=== PATIENT | male | born 1990 | race Caucasian/White ===

== ENCOUNTER 2017-03-08 08:56 | Emergency (ER) | payer OTHER ==
[~2017-03-08] VITALS: Ht 182.9 cm; Wt 97.3 kg
[2017-03-08] MEDS ORDERED: ACETAMINOPHEN 325 MG TAB PO ONE (09:30)
[2017-03-08] MEDS ORDERED: NS 1,000 ML IV ONE (10:30)
[2017-03-08] MEDS ORDERED: KETOROLAC 30 MG/ML VIAL (J1885) IV ONE (10:30)
[2017-03-08] MEDS ORDERED: ONDANSETRON 4MG/2ML VIAL (J2405) IV ONE (10:30)
[2017-03-08 10:48] LABS: ADD MANUAL DIFFER YES; MEAN CORPUSCULAR HEMOGLOBIN 30.4 pg (27.0-33.0); MEAN CORPUSCULAR HGB CONC 34.9 g/dl (32.0-36.5); MEAN CORPUSCULAR VOLUME 87.2 fl (80.0-96.0); PLATELET COUNT, AUTOMATED 215 k/mm3 (150-450); RED CELL DISTRIBUTION WIDTH 13.1 % (11.5-14.5); WHITE BLOOD COUNT 17.7 K/mm3 (4.0-10.0)
[2017-03-08 10:49] LABS: ALBUMIN 4.3 GM/DL (3.2-5.2); ALKALINE PHOSPHATASE 103 U/L (45-117); ALT/SGPT 24 U/L (12-78); ANION GAP 11 MEQ/L (8-16); AST/SGOT 19 U/L (15-37); BILIRUBIN,DIRECT 0.2 MG/DL (0.0-0.2); BILIRUBIN,TOTAL 0.9 MG/DL (0.2-1.0); BLOOD UREA NITROGEN 10 MG/DL (7-18); CALCIUM LEVEL 9.2 MG/DL (8.5-10.1); CARBON DIOXIDE LEVEL 25 MEQ/L (21-32); CHLORIDE LEVEL 102 MEQ/L (98-107); CREATININE FOR GFR 1.35 MG/DL (0.70-1.30); GLOMERULAR FILTRATION RATE > 60.0 (>60); GLUCOSE, FASTING 111 MG/DL (70-105); POTASSIUM SERUM 3.9 MEQ/L (3.5-5.1); SODIUM LEVEL 138 MEQ/L (136-145); TOTAL PROTEIN 7.6 GM/DL (6.4-8.2)
[2017-03-08 11:17] LABS: BANDS 6 % (< 11)
[2017-03-08 11:18] LABS: ANISOCYTOSIS 1+
[2017-03-08] MEDS ORDERED: ISOVUE-370 76% 100ML VIAL (Q9967) As Ordered ONE (11:23)
--- NOTE | 2017-03-08 11:50 | REP ---
Clinical: Right lower quadrant pain. Technique: Axial contrast enhanced images from the lung bases to the pubic symphysis using 100 ml Isovue 370 intravenous contrast material with coronal and sagittal re-formations. Findings: Liver, spleen, pancreas, gallbladder, bilateral adrenal glands and kidneys are normal. The enteric system is without obstruction or obvious acute inflammatory process. Right lower quadrant demonstrates normal cecum and terminal ileum. Distal portion of the appendix measures up to 7 mm demonstrates normal wall thickness and no periappendiceal stranding to suggest acute appendicitis. However close clinical observation may be warranted. Pelvis demonstrates normal bladder and age appropriate prostate/seminal vesicles. No pelvic fluid or ascites. No adenopathy. No free air. Vasculature is normal. Surrounding musculoskeletal structures are intact. Lung bases are clear. Impression: 1. A mid to distal portion of the appendix is mildly dilated to 7.5 mm, but without periappendiceal stranding and normal wall thickness. No secondary findings to suggest acute appendicitis are appreciated. Close clinical observation may be warranted. 2. No acute abdominopelvic pathology otherwise appreciated. Signed by Cleve Dobbins MD 03/08/2017 11:41 A
[2017-03-08] MEDS ORDERED: IBUP-1022 PO (12:56)
[2017-03-08] MEDS ORDERED: TYLE325T5 PO (12:56)
[2017-03-08 12:58] VITALS: BP 131/64
== END 2017-03-08 13:04 | disposition home or self-care (01) ==
LOC: M ED 08:56
DX: R10.31 Right lower quadrant pain (principal); F17.200 Nicotine dependence, unspecified, uncomplicated
CPT/HCPCS: 74177; 80048; 80076; 81001; 83690; 85025; 87880; 96374; 96375; 99284; J1885; J2405; Q9967

== ENCOUNTER 2017-03-09 10:51 | Emergency (ER) | payer OTHER ==
[~2017-03-09] VITALS: Ht 195.6 cm; Wt 98.7 kg
[~2017-03-09 10:51] MED LIST: IBUP-1022 PO; TYLE325T5 PO
[2017-03-09 12:00] LABS: BASO # 0.4 K/mm3 (0.0-0.2); BASO % 2.4 % (0.0-1.0); EOS % 0.2 % (0.0-3.0); LARGE UNSTAINED CELL # 0.2 K/mm3 (0.0-0.4); LARGE UNSTAINED CELL % 1.3 % (0.0-4.0); LYMPH # 0.6 K/mm3 (1.5-6.5); LYMPH % 3.8 % (24.0-44.0); MEAN CORPUSCULAR HEMOGLOBIN 30.8 pg (27.0-33.0); MEAN CORPUSCULAR HGB CONC 34.8 g/dl (32.0-36.5); MEAN CORPUSCULAR VOLUME 88.5 fl (80.0-96.0); MONO # 1.2 K/mm3 (0.0-0.8); MONO % 7.4 % (0.0-5.0); NEUTROPHILS # 14.1 K/mm3 (1.8-7.7); NEUTROPHILS % 84.9 % (36.0-66.0); PLATELET COUNT, AUTOMATED 185 k/mm3 (150-450); RED CELL DISTRIBUTION WIDTH 13.3 % (11.5-14.5); WHITE BLOOD COUNT 16.6 K/mm3 (4.0-10.0)
[2017-03-09 12:16] VITALS: BP 135/81
== END 2017-03-09 12:27 | disposition home or self-care (01) ==
LOC: M ED 10:51
DX: R10.31 Right lower quadrant pain (principal); F17.200 Nicotine dependence, unspecified, uncomplicated; Z88.0 Allergy status to penicillin